=== PATIENT | male | born 2000 | race Caucasian/White ===

== ENCOUNTER 2022-08-05 18:07 | Emergency (ER) | payer MEDICAID, SELFPAY ==
[2022-08-05 18:24] VITALS: BP 169/70; PULSE 72; RESP 18; TEMP 36.8; O2SAT 99
[2022-08-05 19:09] LABS: Influenza A QL RT-PCR Positive (Negative); Influenza B QL RT-PCR Negative (Negative); RSV RNA, RT-PCR Negative (Negative); SARS-CoV-2 RNA PCR Negative
--- NOTE | 2022-08-05 19:28 | ED.URI ---
HPI - URI/Sore Throat General Chief Complaint: Upper Respiratory Infection Stated Complaint: cough, sore throat, fever Time Seen by Provider: 08/05/22 18:56 History of Present Illness HPI Narrative: 21-year-old male presented to the emergency department for evaluation of greater than 7 days of cough congestion body aches and fever. Patient denies any chest pain or shortness of breath. Related Data Allergies Allergy/AdvReac Type Severity Reaction Status Date / Time No Known Allergies Allergy Verified 08/05/22 18:08 Review of Systems Review of Systems: CONSTITUTIONAL: See HPI EYES: Denies visual changes, redness, or discharge. ENT: Denies rhinorrhea, congestion, sore throat, or otalgia. CARDIOVASCULAR: Denies chest pain, palpitations, or edema. RESPIRATORY: See HPI GASTROINTESTINAL: Denies abdominal pain, nausea, vomiting, or diarrhea. GENITOURINARY: Denies dysuria or hematuria. SKIN: Denies rash or itching. MUSCULOSKELETAL: Denies back pain, joint pain, or myalgia. NEUROLOGIC: Denies headache, numbness, or weakness. PSYCHIATRIC: Denies anxiety or depression. Exam Narrative: APPEARANCE: Well appearing, no pain, no distress, well-nourished. HEAD: normocephalic, atraumatic. EYES: PERRLA/EOMI, conjunctivae clear. NOSE: Normal no drainage NECK: Supple. No adenopathy, no masses. RESPIRATORY: Airway patent, respirations nonlabored. Clear to auscultation bilaterally, no rales, rhonchi, wheezing. CARDIOVASCULAR: Regular rate and rhythm without murmurs rubs or gallops. ABDOMINAL: Soft, nontender, nondistended, normal bowel sounds MUSCULOSKELETAL: Moves all extremities. Strength/ROM intact, No edema, No calf tenderness. NEURO: Alert. Cranial nerves II through XII intact. SKIN: Warm, dry. Normal Color Course Course Emergency Course: Patient did test positive for influenza A but patient has also had upper respiratory symptoms for approximately 10 days. Patient patient will be started on antibiotics for possible bacterial superinfection. Patient was also provided Tessalon Perles and albuterol inhaler. Vital Signs Vital signs: Vital Signs Temperature 98.2 F 08/05/22 18:24 Pulse Rate 72 08/05/22 18:24 Respiratory Rate 18 08/05/22 18:24 Blood Pressure 169/70 H 08/05/22 18:24 Pulse Oximetry 99 08/05/22 18:24 Oxygen Delivery Room Air 08/05/22 18:24 Temperature 98.2 F 08/05/22 18:24 Pulse Rate 72 08/05/22 18:24 Respiratory Rate 18 08/05/22 18:24 Blood Pressure 169/70 H 08/05/22 18:24 Pulse Oximetry 99 08/05/22 18:24 Oxygen Delivery Room Air 08/05/22 18:24 MDM - URI/Sore Throat Lab Data Labs: Lab Results 08/05/22 Range/Units 18:29 Influenza A (RT-PCR) Positive (Negative) Influenza B (RT-PCR) Negative (Negative) RSV (RT-PCR) Negative (Negative) SARS-CoV-2 RNA (RT-PCR) Negative Discharge Plan Discharge Clinical Impression: Influenza A Patient Disposition: Home, Self-Care Condition: Stable Instructions: Antibiotic Form, Influenza (ED) Additional Instructions: You did test positive for influenza A but you are being treated with antibiotics for possible underlying bacterial infection due to the duration of your illness. Albuterol inhaler for cough, Tessalon Perles for cough. Have close follow-up with your primary care physician Prescriptions: New benzonatate 100 mg capsule 100 mg PO TID PRN (Reason: cough) Qty: 14 0RF azithromycin 250 mg tablet See Rx Instructions .ROUTE .COMPLEX Qty: 6 0RF Rx Instructions: For 250 mg dose pack: take 500 mg today (day 1), then 250 mg for 4 days (days 2-5) albuterol sulfate 90 mcg/actuation HFA aerosol inhaler 1 inh inhalation QID PRN (Reason: shortness of breath or wheezing) Qty: 6.7 0RF Follow-up/Referrals: PHYSICIAN,[employer] RECORD CLERK [Primary Care Provider] - Stand Alone Forms: Work/School Release IP
--- NOTE | 2022-08-05 20:06 | PC.NURSE ---
Pt not in room or bathroom when RN arrived to room 18, will continue to search for
== END 2022-08-05 20:00 | disposition home or self-care (01) ==
LOC: ANHED 19:47
PROVIDERS: Emergency Provider Emergency Medicine
DX: J10.1 Influenza due to other identified influenza virus with other respiratory manifestations (principal); Z20.822 Contact with and (suspected) exposure to COVID-19
CPT/HCPCS: 87637; 99283

== ENCOUNTER 2023-06-06 14:53 | Emergency (ER) | payer OTHER, SELFPAY ==
--- NOTE | ~2023-06-06 | XR_ITS ---
EXAMINATION: XR chest 1V portable Exam Date/Time: 06/06/2023 15:55 CDT HISTORY: cough, sob, NAUSEA, VOMITTING, WITH BODY ACHES X 1 DAY Comparison: None. RESULT: Lines, tubes, and devices: None. Lungs and pleura: Slightly low volumes with crowding. Slight right hemidiaphragm elevation. Cardiomediastinal silhouette: Normal. Other: No acute osseous or upper abdominal finding. IMPRESSION: No acute cardiopulmonary process. Reviewed, dictated and finalized at location K.
[2023-06-06 15:02] VITALS: BP 131/70; PULSE 70; RESP 18; TEMP 36.7; O2SAT 99
[2023-06-06 15:19] LABS: Basophils Percent Auto 0.7 % (0.2-1.2); Eosinophils Absolute Auto 0.2 K/mm3 (0-0.3); Eosinophils Percent Auto 3.8 % (0-4.4); Hematocrit 45.8 % (42.0-52.0); Hemoglobin 15.5 g/dL (14.0-18.0); Immature Granulocyte Absolute 0.02 K/mm3 (0.00-0.031); Immature Granulocyte Percent A 0.3 % (0-0.5); Lymphocytes Absolute Auto 1.79 K/mm3 (0.9-3.2); Lymphocytes Percent Auto 29.2 % (18.3-44.2); Mean Corpuscular HGB Conc 33.8 g/dl (32-36); Mean Corpuscular Hemoglobin 27.8 pg (26-34); Mean Corpuscular Volume 82.2 fl (80-100); Mean Platelet Volume 9.3 fl (7.4-10.4); Monocytes Absolute Auto 0.7 K/mm3 (0.1-0.6); Monocytes Percent Auto 10.6 % (2.6-8.5); Neutrophils Absolute Auto 3.4 K/mm3 (1.3-6.7); Neutrophils Percent Auto 55.4 % (45.5-73.1); Platelet Count Result 240 k/mm3 (150-375); Red Blood Count 5.57 M/mm3 (4.6-6.20); Red Cell Distribution Width 11.8 % (11.5-14.5); White Blood Count 6.1 K/mm3 (4.5-10.0)
[2023-06-06 15:34] LABS: Alanine Aminotransferase 53 U/L (6-50); Albumin Level 4.6 g/dL (3.5-5.1); Alkaline Phosphatase 80 U/L (38-126); Anion Gap 7 mmol/L (8-16); Aspartate Amino Transferase 38 U/L (17-59); Bilirubin,Total 0.7 mg/dL (0.2-1.3); Blood Urea Nitrogen 12 mg/dL (9-20); Calcium 8.9 mg/dL (8.4-10.2); Carbon Dioxide 31 mmol/L (22-30); Chloride 100 mmol/L (98-107); Estimated CRCL calculation 135 ml/min; Estimated Glomerular Filt Rate > 60; Glucose 93 mg/dL (65-110); Lipase 90 U/L (23-300); Potassium 3.4 mmol/L (3.4-5.0); Sodium 138 mmol/L (137-145)
[2023-06-06 15:36] LABS: Appearance Urine Clear (Clear); Bilirubin Urine 1+ (Negative); Blood Urine Negative (Negative); Color Urine Yellow (Yellow); Glucose Urine UA Negative (Negative); Ketones Urine Negative (Negative); Leukocyte Esterase Ur Negative LEU/UL (Negative); Nitrate Urine Negative (Negative); Protein Urine 1+ mg/dL (Negative); Specific Grav Ur 1.025 (1.001-1.035)
[2023-06-06 15:39] LABS: Bacteria Urine Rare /hpf; Non Pathogenic Casts 0-2; RBC Urine 0-2 /hpf (0-2); Squamous Epithelial Cell Urine Few /hpf (Few)
[2023-06-06 15:42] LABS: Add Urine Microscopic? YES
--- NOTE | 2023-06-06 15:53 | ED.NAVMDI ---
HPI - Nausea/Vomiting/Diarrhea General Chief complaint: Nausea/Vomiting/Diarrhea Stated complaint: N/V/D Time Seen by Provider: 06/06/23 15:18 History of Present Illness HPI Narrative: Patient is a 22-year-old male presenting with nausea and vomiting. Patient states that for the last day he has been unable to keep anything down. Continues to feel nauseated. Also complains of diarrhea and diffuse muscle aches. Reports intermittent cough but no shortness of breath, chest pain, leg swelling. No fevers or chills, nasal congestion. Complains of a mildly sore throat. No further complaints. Related Data Allergies Allergy/AdvReac Type Severity Reaction Status Date / Time No Known Allergies Allergy Verified 08/05/22 18:08 Review of Systems Review of Systems: All systems reviewed & are unremarkable except as noted in HPI and below Exam Narrative: GENERAL: Well-appearing and in no acute distress. HEAD: Normocephalic, atraumatic. EYES: PERRLA and EOMI. ENT: No posterior pharyngeal erythema or exudates, no tonsillar hypertrophy, mucous membranes moist. NECK: Supple. CHEST: Clear to auscultation. No respiratory distress. HEART: Regular rate and rhythm ABDOMEN: Soft, nontender, nondistended EXTREMITIES: Normal range of motion. No edema. SKIN: Warm, dry, no rash. NEURO: No focal deficits. Alert and oriented x3. PSYCH: Normal mood and affect. Course Vital Signs Vital signs: Vital Signs Temperature 98.0 F 06/06/23 15:02 Pulse Rate 70 06/06/23 15:02 Respiratory Rate 18 06/06/23 15:02 Blood Pressure 131/70 06/06/23 15:02 Pulse Oximetry 99 06/06/23 15:02 Oxygen Delivery Room Air 06/06/23 15:02 Temperature 98.0 F 06/06/23 15:02 Pulse Rate 80 06/06/23 18:43 Respiratory Rate 20 06/06/23 18:43 Blood Pressure 137/73 06/06/23 18:43 Pulse Oximetry 99 06/06/23 18:43 Oxygen Delivery Room Air 06/06/23 15:02 MDM - Nausea/Vomiting/Diarrhea MDM Narrative Medical decision making narrative: Patient is a 22-year-old male presenting with vomiting, diarrhea, muscle aches. Vital stable. Exam remarkable for the above. Blood work is unremarkable. UA contaminated but not infected. Negative for flu and COVID. Chest x-ray without acute abnormalities. On reevaluation, the patient is resting comfortably. States that his symptoms have resolved. He is tolerating p.o. intake. Feel he is safe for outpatient management. Appropriate return precautions given. Advised PCP follow-up. Discharged in stable condition. Differential Diagnosis Differential diagnosis: Likely gastroenteritis, dehydration and other (Viral infection) Medical Records Attestation: I reviewed the patient's medical records. Lab Data Attestation: I reviewed the patient's lab results. 06/06/23 15:09 06/06/23 15:09 Labs: Lab Results 06/06/23 06/06/23 06/06/23 Range/Units 15:09 15:30 15:57 WBC 6.1 (4.5-10.0) K/mm3 RBC 5.57 (4.6-6.20) M/mm3 Hgb 15.5 (14.0-18.0) g/dL Hct 45.8 (42.0-52.0) % MCV 82.2 (80-100) fl MCH 27.8 (26-34) pg MCHC 33.8 (32-36) g/dl RDW 11.8 (11.5-14.5) % Plt Count 240 (150-375) k/mm3 MPV 9.3 (7.4-10.4) fl Immature Gran % (Auto) 0.3 (0-0.5) % Neut % (Auto) 55.4 (45.5-73.1) % Lymph % (Auto) 29.2 (18.3-44.2) % [place] % (Auto) 10.6 H (2.6-8.5) % Eos % (Auto) 3.8 (0-4.4) % Baso % (Auto) 0.7 (0.2-1.2) % Lymph # (Auto) 1.79 (0.9-3.2) K/mm3 [place] # (Auto) 0.7 H (0.1-0.6) K/mm3 Eos # (Auto) 0.2 (0-0.3) K/mm3 Baso # (Auto) 0.0 (0.0-0.1) K/mm3 Abs Immat Gran (auto) 0.02 (0.00-0.031) K/mm3 Absolute Neuts (auto) 3.4 (1.3-6.7) K/mm3 Absolute Nucleated RBC 0.0 (0.0-0.012) K/mm3 Nucleated RBC % 0.0 (0.0-0.2) % Sodium 138 (137-145) mmol/L Potassium 3.4 (3.4-5.0) mmol/L Chloride 100 (98-107) mmol/L Carbon Dioxide 31 H (22-30) mmol/L Anion Gap 7 L (8-
[2023-06-06] MEDS: SODIUM CHLORIDE 0.9% IV 1,000 ML 999 ML IV CONT (16:05)
[2023-06-06] MEDS: ONDANSETRON INJ 4 MG/2 ML VIAL IV PUSH (16:06)
[2023-06-06 16:11] LABS: Creatine Kinase 64 U/L (55-170)
[2023-06-06 16:42] LABS: Influenza A QL RT-PCR Negative (Negative); Influenza B QL RT-PCR Negative (Negative); SARS-CoV-2 RNA PCR Negative (Negative)
[2023-06-06 17:45] VITALS: BP 138/77; PULSE 84; RESP 20; O2SAT 100
[2023-06-06 18:43] VITALS: BP 137/73; PULSE 80; RESP 20; O2SAT 99
== END 2023-06-06 18:35 | disposition home or self-care (01) ==
PROVIDERS: Emergency Provider Emergency Medicine
DX: R11.2 Nausea with vomiting, unspecified (principal); R19.7 Diarrhea, unspecified; M79.10 Myalgia, unspecified site; Z20.822 Contact with and (suspected) exposure to COVID-19
CPT/HCPCS: 36415; 71045; 80053; 81001; 82550; 83690; 85025; 87086; 87088; 87636; 96361; 96374; 99284; J2405; J7030